=== PATIENT | male | born 1985 | race Caucasian/White ===

== ENCOUNTER 2018-04-20 20:19 | Emergency (ER) | payer MEDICAID, SELFPAY ==
[2018-04-20 20:20] VITALS: BP 114/75; PULSE 105; RESP 16; TEMP 36.8; O2SAT 97; BMI 27.3
[2018-04-20 22:28] VITALS: BP 143/81; PULSE 89; RESP 16; O2SAT 95
--- NOTE | 2018-04-20 23:03 | ED.VISSUMM ---
- ER Visit Summary Date of Service: 04/20/18 Chief Complaint: Substance abuse History of Present Illness: The patient is a 33 M who presents with substance abuse. His main drug is IV heroin. His last use was yesterday. However he states that he will really use whatever he can get his hands on. He occasionally uses cocaine. He denies alcohol use. Currently he is not having withdrawal symptoms. Physical Examination: Afebrile vitals are unremarkable Moist mucous membranes Neck supple Heart regular rate and rhythm Lungs clear Abdomen soft Alert No tremor No gooseflesh No diaphoresis Test Results: Not indicated Emergency Department Course and Treatment: CINA is 1, therefore patient does not meet criteria for hospitalization at this facility. I have offered him outpatient follow-up and contact information. He was upset and stated don't botherand walked out. Treatment Plan: [] Disposition: Discharge Impression: Polysubstance abuse This note was generated with [employer] dictation software. It may contain incorrect words, spelling, and punctuation that were not noted in review of the chart prior to signing ED Disposition - Plan for ED Patient: Referrals: Care Physician,No Primary [Primary Care Provider] -
--- NOTE | 2018-04-20 23:04 | ED.RN ---
PT LEFT WHEN HE WAS TOLD BY HE DID NOT MEET THE CRITERIA FOR INPATIENT ADMISSION. PT WAS TOLD WE COULD GIVE HIM PHONE NUMBERS TO GET ADMITTED THROUGH [facility] IN THE MORNING. PT REFUSED AND LEFT PRIOR TO D/C INSTRUCTIONS
--- NOTE | 2018-04-20 23:06 | ED.DCSUM_ITS ---
- ER Visit Summary Date of Service: 04/20/18 Chief Complaint: Substance abuse History of Present Illness: The patient is a 33 M who presents with substance abuse. His main drug is IV heroin. His last use was yesterday. However he states that he will really use whatever he can get his hands on. He occasi onally uses cocaine. He denies alcohol use. Currently he is not having withdrawal symptoms. Physical Examination: Afebrile vitals are unremarkable Moist mucous membranes Neck supple Heart regular rate and rhythm Lungs clear Abdomen soft Alert No tremor No gooseflesh No diaphoresis Test Results: Not indicated Emergency Department Course and Treatment: CINA is 1, therefore patient does not meet criteria for hospitalization at this facility. I have offered him outpatient follow-up and contact information. He was upset and stated don't botherand walked out. Treatment Plan: [] Disposition: Discharge Impression: Polysubstance abuse This note was generated with [employer] dictation software. It may contain incorrect words, spelling, and punctuation that were not noted in review of the chart prior to signing ED Disposition - Plan for ED Patient: Referrals: Care Physician,No Primary [Primary Care Provider] -
[2018-04-20 23:09] VITALS: RESP 16
== END 2018-04-20 23:09 | disposition home or self-care (01) ==
PROVIDERS: Emergency Provider Emergency Medicine
DX: F19.10 Other psychoactive substance abuse, uncomplicated (principal); F11.10 Opioid abuse, uncomplicated; F14.10 Cocaine abuse, uncomplicated
CPT/HCPCS: 99282